=== PATIENT | female | born 2000 | race Caucasian/White ===

== ENCOUNTER 2021-03-05 10:47 | Emergency (ER) | payer OTHER, SELFPAY ==
[2021-03-05 10:56] VITALS: BP 130/92; PULSE 102; RESP 24; TEMP 36.7; O2SAT 100
--- NOTE | 2021-03-05 11:32 | ED.FEMALEGU ---
HPI - Female Genitourinary General Chief complaint: Urogenital-Female Stated complaint: hot flashes/light headed Time Seen by Provider: 03/05/21 11:22 Source: patient and RN notes reviewed Mode of arrival: ambulatory Limitations: no limitations History of Present Illness HPI Narrative: 20-year-old female who presents to [facility] with complaints of 2-week duration of dark-colored urine, strong smelling urine, and stinging with urination, has been taking Azo for her symptoms. Patient states this morning while showering she became nauseated felt anxious and lightheaded, felt like she was going to pass out so had fiend bring her to express care. Patient denies any vaginal discharge or any perineal itching,states no concern for possible STD's. MD elicited complaint: dysuria Severity scale (1-10): 4 Quality of pain: burning Vaginal discharge: none Vaginal bleeding: none Urinary symptoms: Dysuria and Foul Smelling Urine Exacerbating factors: urination Sexual activity: Yes Patient : No Related Data Home Medications Medication Instructions Recorded Confirmed Lexapro 03/05/21 famotidine 03/05/21 Allergies Allergy/AdvReac Type Severity Reaction Status Date / Time Penicillins Allergy Unknown Verified 03/05/21 11:12 Review of Systems Review of Systems: Narrative: CONSTITUTIONAL: Denies fever, chills, or sweats. EYES: Denies visual changes, redness, or discharge. ENT: Denies rhinorrhea, congestion, sore throat, or otalgia. CARDIOVASCULAR: Denies chest pain, palpitations, or edema. RESPIRATORY: Denies cough or dyspnea. GASTROINTESTINAL: Denies abdominal pain, positive nausea, no vomiting, or diarrhea. GENITOURINARY: Positive dysuria denies visual hematuria. SKIN: Denies rash or itching. MUSCULOSKELETAL: Denies back pain, joint pain, or myalgia. NEUROLOGIC: Denies headache, numbness, or weakness. PSYCHIATRIC: Positive history anxiety or depression. All systems reviewed & are unremarkable except as noted in HPI and below [facility] Past Medical History Medical History (Updated 03/06/21 @ 00:00 by Background Daemon) Anxiety and depression GERD (gastroesophageal reflux disease) IBS (irritable bowel syndrome) Surgical History Surgical History (Updated 03/05/21 @ 11:36 by Neli Arrington NP) Hx of cholecystectomy Family History Family History (Updated 03/05/21 @ 11:48 by Neli Arrington NP) Father Bipolar 1 disorder Grandparent FH: lung cancer Mother Family history of GERD Social History Social History (Updated 03/05/21 @ 11:46 by Neli Arrington NP) Smoking status: Never smoker Substance use: current Substance use type: marijuana Living arrangements: alone Gender identity (if verbalized by the patient): Female Comments At time of signature, agree with nursing past medical, surgical, social and family history. There is no relevant family history pertinent to the presenting complaint Exam Narrative: Exam Narrative: GENERAL: Well-appearing, well-nourished, and in no acute distress,anxious HEAD: Normocephalic, atraumatic. EYES: PERRLA and EOMI. ENT: Nares clear, no rhinorrhea or epistaxis. Mucous membranes moist.TM's normal with good light reflex, Throat pink with no redness, lesions or exudates, no tonsil swelling. NECK: Supple.no lymphadenopathy CHEST: Clear to auscultation. No respiratory distress.SAO2 100% on room air HEART: Regular rate and rhythm. No murmur heard. Normal peripheral pulses. ABDOMEN: Soft, nontender, nondistended, normal active bowel sounds.no CVA tenderness on examination EXTREMITIES: Normal range of motion. No edema. SKIN: Warm, dry, no rash. NEURO: No focal deficits. Alert and oriented x3. Course Vital Signs Vital signs: Vital Signs Temperature 36.7 C 03/05/21 10:56 Pulse Rate 102 H 03/05/21 10:56 Respiratory Rate 24 H 03/05/21 10:56 Blood Pressure 130/92 H 03/05/21 10:56 Pulse Oximetry 100 03/05/21 10:56 Temperature 36.7 C 03/05
== END 2021-03-05 11:59 | disposition home or self-care (01) ==
PROVIDERS: Emergency Provider Registered Nurse
DX: N39.0 Urinary tract infection, site not specified (principal); K21.9 Gastro-esophageal reflux disease without esophagitis
CPT/HCPCS: 81003; 87086; 87088; 99213; G0463